=== PATIENT | male | born 1970 | race Caucasian/White ===

== ENCOUNTER 2019-05-19 19:07 | Emergency (ER) | payer MEDICAID, OTHER ==
[~2019-05-19] VITALS: Ht 177.8 cm; Wt 85.7 kg
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
[2019-05-19] MEDS ORDERED: IBUPROFEN 400 MG TABLET PO ONE (19:30)
[2019-05-19] MEDS ORDERED: IBUPROFEN 400 MG TABLET ONE (19:34)
[2019-05-19 20:03] VITALS: BP 150/101
== END 2019-05-19 20:04 | disposition home or self-care (01) ==
LOC: ER 19:20
DX: S16.1XXA Strain of muscle, fascia and tendon at neck level, initial encounter (principal); I10 Essential (primary) hypertension; J45.909 Unspecified asthma, uncomplicated; Z87.442 Personal history of urinary calculi; Z88.8 Allergy status to other drugs, medicaments and biological substances; V43.53XA Car driver injured in collision with pick-up truck in traffic accident, initial encounter; Y93.89 Activity, other specified; Y92.413 State road as the place of occurrence of the external cause; Y99.8 Other external cause status
CPT/HCPCS: 72125-TC

== ENCOUNTER → 2023-06-22 | Emergency (ER) | payer MEDICAID, OTHER ==
[~2023-06-22] VITALS: Ht 177.8 cm; Wt 88.5 kg
[~2023-06-22] MED LIST: IBUP-1953 PO; IBUPROFEN 600 MG TABLET ONE; IBUPROFEN 600 MG TABLET PO ONE; METH-647 PO
[2023-06-22 16:50] VITALS: BP 146/80; TEMP 98.4; O2SAT 99
== END | disposition home or self-care (01) ==
LOC: ER 12:36
DX: S13.4XXA Sprain of ligaments of cervical spine, initial encounter (principal); I10 Essential (primary) hypertension; J45.909 Unspecified asthma, uncomplicated; Z87.442 Personal history of urinary calculi; Z88.8 Allergy status to other drugs, medicaments and biological substances; V89.2XXA Person injured in unspecified motor-vehicle accident, traffic, initial encounter; Y93.89 Activity, other specified; Y92.89 Other specified places as the place of occurrence of the external cause; Y99.8 Other external cause status
CPT/HCPCS: 72125-TC